=== PATIENT | male | born 1955 | race African-American/Black ===

== ENCOUNTER 2017-07-06 18:40 | Emergency (ER) | payer BC ==
[~2017-07-06] VITALS: Ht 188 cm; Wt 122.5 kg
--- OUTSIDE RECORDS SUMMARY | 2017-07-06 18:42 | XMS REPORT | Clinical Summary ---
Author Author [facility] Address Unknown Phone Unavailable Care Team Providers Care Instrument Specialist Name Role Phone PCP Unavailable Allergies Active Allergy Reactions Severity Noted Date Comments Penicillins Hives High 07/17/2015 Current Medications Prescription Sig. Disp. Refills Start End Date Status Date AMLODIPINE BESYLATE Take by mouth. Active (AMLODIPINE ORAL) TERAZOSIN HCL (TERAZOSIN Take by mouth. Active ORAL) LISINOPRIL ORAL Take by mouth. Active IRBESARTAN ORAL Take by mouth. Active tamsulosin (FLOMAX) 0.4 Take 0.4 mg by mouth Active mg Cp24 24 hr capsule daily. OMEPRAZOLE ORAL Take by mouth. Active Active Problems Not on file Social History Tobacco Use Types Packs/Day Years Used Date Never Smoker Alcohol Use Drinks/Week oz/Week Comments Yes Sex Assigned at Date Recorded Not on file Last Filed Vital Signs Not on file Plan of Treatment Not on file Results Not on fileafter 07/05/2016
[2017-07-06] MEDS ORDERED: KETOROLAC TROMETHAMINE 60 MG/2 ML VIAL IM ONE (19:00)
[2017-07-06] MEDS ORDERED: HYDROCODONE/APAP 10MG-325MG TAB PO ONE (19:00)
[2017-07-06] MEDS ORDERED: DIAZEPAM 5 MG TAB PO PRN (19:00)
[2017-07-06] MEDS ORDERED: DEXAMETHASONE SOD PHOS 10 MG/1 ML VIAL INJ ONE (19:00)
[2017-07-06 19:03] LABS: BILIRUBIN,URINE 1+ (NEGATIVE); CLARITY,URINE CLOUDY (CLEAR); COLOR,URINE YELLOW (YELLOW); KETONES,URINE NEGATIVE (NEGATIVE); LEUKOCYTE ESTERASE ,URINE NEGATIVE (NEGATIVE); NITRITE,URINE NEGATIVE (NEGATIVE); PROTEIN,URINE DIPSTICK 1+ (NEGATIVE); URINE UROBILINOGEN 0.2 mg/dL (0.2 - 1)
[2017-07-06] MEDS ORDERED: ASPIRIN 81 MG CHEW TAB PO ONE (19:15)
[2017-07-06 19:17] LABS: AMORPHOUS SEDIMENT,URINE FEW (FEW); BACTERIA,URINE MODERATE /HPF; RBC,URINE 0-5 /HPF (0-5); WBC,URINE (MAN) 0-5 /HPF (0-5)
--- NOTE | 2017-07-06 19:48 | Diagnostic Imaging Report ---
EXAMINATION: Head and cervical spine CT without contrast. HISTORY: Status post fall off a ladder COMPARISON: None. TECHNIQUE: Multidetector axial images were obtained without contrast from the foramen magnum to the vertex and through the cervical spine. The images were reconstructed using brain and bone algorithms. Thin section brain images were reformatted into coronal and sagittal planes. HEAD CT FINDINGS: Skull: No lytic or blastic lesions. No fractures. Parenchyma: Normal. No mass, hemorrhage or CT evidence of acute vascular insult. Brain volume: Normal for age. Ventricles: No hydrocephalus or displacement. Arteries: No density suggestive of thrombus. Dural sinuses: No abnormal density. Extra-axial spaces: No abnormal density. Foramen magnum: No mass, Chiari malformation, or basilar invagination. Sella: No obvious mass. Paranasal/mastoid sinuses: Imaged portions unremarkable. CERVICAL SPINE CT FINDINGS: Alignment:Normal alignment and lordosis. Soft tissues: Normal. Vertebrae: Normal height and density. No acute fracture, infection or neoplasm. Chronic degenerative changes: C5-C6: Small disc osteophyte, radiographic proptosis without significant stenoses.. C6-C7: Asymmetrical left disc osteophyte, uncovertebral and facet arthrosis. Moderately severe left foraminal.. IMPRESSION: Head CT: No acute diaphragmatic intracranial abnormality, particularly no hemorrhage. Cervical spine CT: 1. No acute fractures or dislocations. 2. Chronic degenerative changes as described. Note: Acute post traumatic spinal cord, vascular or ligamentous injury cannot adequately be assessed with CT. Signed by: Dr. Sandra Snow M.D. on 07/06/2017 7:44 PM
[2017-07-06] MEDS ORDERED: KETOROLAC TROMETHAMINE 30 MG/ML VIAL ONE (20:02)
[2017-07-06 20:10] LABS: BASOPHILS % 0.3 % (0.0-1.0); EOSINOPHILS # (AUTO) 0.1 (0.0-0.4); EOSINOPHILS % 0.6 % (0.0-6.0); HEMOGLOBIN 15.3 g/dL (14.0-18.0); LYMPHOCYTES # (AUTO) 1.7 (1.0-3.2); LYMPHOCYTES % 14.9 % (18.0-39.1); MEAN CORPUSCULAR HEMOGLOBIN 28.3 pg (28-32); MEAN CORPUSCULAR VOLUME 83.2 fL (81-99); MONOCYTES # (AUTO) 0.7 (0.2-0.8); MONOCYTES % 6.1 % (4.4-11.3); NEUTROPHILS # (AUTO) 8.7 (2.1-6.9); NEUTROPHILS % 77.5 % (38.7-80.0); PLATELET COUNT 177 x10e3/uL (140-360); RED BLOOD COUNT 5.41 x10e6/uL (4.3-5.7); RED CELL DISTRIBUTION WIDTH 13.4 % (11.7-14.4)
[2017-07-06] MEDS ORDERED: OMEPRAZOLE40 MG PO (20:13)
[2017-07-06] MEDS ORDERED: TERAZOSIN HCL5 MG PO (20:13)
[2017-07-06] MEDS ORDERED: IRBESARTAN-HCT1 EACH PO (20:13)
--- NOTE | 2017-07-06 20:17 | Diagnostic Imaging Report ---
SP LUMBAR, COMPLETE MIN 4VW Comparison: None Clinical history: Fracture, back pain Findings: There are 4 lumbar type vertebral bodies with sacralization of L5 and ribs at T12. Mild anterior compression deformity of T12, almost 20% height loss. Multilevel degenerative endplate changes and L4-S1 facet arthrosis. Alignment is grossly intact. Questionable left posterior 11th and 12th rib fractures at the costovertebral junction. Impression: Mild anterior compression deformity of T12. Correlate with point tenderness. Questionable posterior left 11th and 12th rib fractures at the costovertebral junction. Signed by: Dr Sandy Hale MD on 07/06/2017 8:14 PM
[2017-07-06 20:30] LABS: ALANINE AMINOTRANSFERASE 26 IU/L (0-55); ALBUMIN 4.4 g/dL (3.5-5.0); ALBUMIN/GLOBULIN RATIO 1.3 (0.8-2.0); ALKALINE PHOSPHATASE 57 IU/L (40-150); ANION GAP 13.2 mmol/L (8-16); BLOOD UREA NITROGEN 17 mg/dL (7-26); BUN/CREATININE RATIO 12 (6-25); CALCIUM 9.9 mg/dL (8.4-10.2); CARBON DIOXIDE 29 mmol/L (22-29); CHLORIDE 103 mmol/L (98-107); CREATINE KINASE 635 IU/L (30-200); CREATININE, SERUM 1.39 mg/dL (0.72-1.25); EST GLOMERULAR FILTRATION RATE > 60 ML/MIN (60-); GLUCOSE 94 mg/dL (74-118); POTASSIUM 3.2 mmol/L (3.5-5.1); SODIUM 142 mmol/L (136-145)
[2017-07-06] MEDS ORDERED: IOPAMIDOL 370 MG/ML 200 ML INFUS..BTL INJ ONE (21:18)
[2017-07-06] MEDS ORDERED: SODIUM CHLORIDE 0.9% 50ML 50 ML ONE (21:18)
--- NOTE | 2017-07-06 22:39 | Diagnostic Imaging Report ---
EXAM: CT CHEST W, CT ABDOMEN/PELVIS W DATE: 07/06/2017 7:01 PM INDICATION: Trauma, back pain COMPARISON: None TECHNIQUE: Multidetector CT scanning of the chest was performed. Coronal and sagittal multiplanar reformations were obtained. Note that technical issues resulted in a delay in interpretation. IV Contrast: 100 ml Isovue 370/300 FINDINGS: LUNGS AND PLEURA: No consolidations or edema. Trace right pleural effusion. HEART, MEDIASTINUM, VESSELS: Borderline heart size with small simple pericardial effusion. No mediastinal hematoma. LIVER/BILIARY: Indeterminate 2 x 1.6 cm left liver hypodense lesion. Other lesions likely reflect cysts. No ductal dilatation. GALLBLADDER: Unremarkable SPLEEN: Unremarkable PANCREAS: Unremarkable ADRENALS: Indeterminant 1.2 cm left adrenal nodule. KIDNEYS: Symmetric perfusion. No enhancing masses. No hydronephrosis. Following . The covarrubias-white Number GI TRACT: No wall thickening or evidence of obstruction. VESSELS: Unremarkable PERITONEUM/RETROPERITONEUM: No free air or fluid LYMPH NODES: No lymphadenopathy REPRODUCTIVE ORGANS/BLADDER: Unremarkable MUSCULOSKELETAL: Acute compression fracture of T12 involving the anterior to mid vertebral body (1st column, about 50% height loss centrally). Degenerative changes of the left T11-12 facets without definite fracture. No definite rib fracture seen. IMPRESSION: 1. Acute T12 compression deformity. No retropulsion. 2. Trace right pleural effusion without definite rib fracture. 3. Small simple appearing pericardial effusion. 4. Indeterminate left liver lesion and left adrenal nodule. Recommend nonemergent follow-up MRI liver mass protocol. Discussed with MISSY Uribe at 10:30 PM on 07/06/2017 to relay the emergent finding to Dr. Segovia, who is currently unavailable. Signed by: Dr Sandy Hale MD on 07/06/2017 10:36 PM
[2017-07-06 23:24] VITALS: BP 156/72
[2017-07-06] MEDS ORDERED: HYDROMORPHONE 1MG/1ML INJ IV STA (23:44)
== END 2017-07-07 00:02 | disposition short-term general hospital (02) ==
LOC: ER 18:40
DX: S22.080A Wedge compression fracture of T11-T12 vertebra, initial encounter for closed fracture (principal); W11.XXXA Fall on and from ladder, initial encounter; Y92.009 Unspecified place in unspecified non-institutional (private) residence as the place of occurrence of the external cause; I31.3 Pericardial effusion (noninflammatory); M47.812 Spondylosis without myelopathy or radiculopathy, cervical region
CPT/HCPCS: 51700; 99284; J1100; J1885; Q9967